=== PATIENT | female | born 1940 | race Caucasian/White ===

== ENCOUNTER 2020-05-16 08:17 | Emergency (ER) | payer OTHER ==
[~2020-05-16] VITALS: Ht 162.6 cm; Wt 51.3 kg
[2020-05-16] MEDS ORDERED: JANUMET 50-1,01 EACH (08:34)
[2020-05-16] MEDS ORDERED: GABAPENTIN400 MG PO (08:39)
[2020-05-16] MEDS ORDERED: DIABETES HEALT1 EAC2 (08:40)
[2020-05-16] MEDS ORDERED: ATORVASTATIN CA40 MG PO (08:40)
[2020-05-16] MEDS ORDERED: AVAPRO75 MG PO (08:44)
[2020-05-16] MEDS ORDERED: TAMS0.4C PO (16:18)
[2020-05-16] MEDS ORDERED: CIPRO500 MG PO (16:18)
[2020-05-16] MEDS ORDERED: KETO10TA2 PO (16:19)
== END 2020-05-16 16:25 | disposition home or self-care (01) ==
LOC: ER 08:17
DX: G89.18 Other acute postprocedural pain (principal); R10.32 Left lower quadrant pain; N20.0 Calculus of kidney